=== PATIENT | male | born 2000 | race Caucasian/White ===

== ENCOUNTER 2022-07-31 14:45 | Outpatient (CLI) | payer OTHER, MEDICAID, SELFPAY ==
[2022-07-31 22:13] LABS: Sodium* 141 mmol/L (135-149)
[2022-07-31 22:15] LABS: Aspartate Amino Transferase* 57 U/L (12-35); Bilirubin Total* 0.4 mg/dL (0.1-1.5); Estimated Glomerular Filt Rate 109 ml/min
[2022-07-31 22:16] LABS: Alanine Aminotransferase* 84 U/L (4-50); Glucose* 82 mg/dL (60-115)
[2022-07-31 22:17] LABS: Potassium* 4.6 mmol/L (3.6-5.1)
[2022-07-31 22:49] LABS: Albumin* 4.7 g/dL (3.3-5.0)
[2022-07-31 22:50] LABS: Chloride* 107 mmol/L (96-114)
[2022-07-31 22:52] LABS: Alkaline Phosphatase* 81 U/L (40-150); Blood Urea Nitrogen* 15 mg/dL (5-24); Carbon Dioxide* 24 mmol/L (20-32); Cholesterol* 187 mg/dL (90-199); Total Protein* 7.2 g/dL (6.0-8.3)
[2022-07-31 22:53] LABS: HDL Cholesterol* 60 mg/dL (>=40); LDL Cholesterol Calculated 95 mg/dL (<100); Triglycerides* 162 mg/dL (40-149)
[2022-07-31 22:57] LABS: Hepatitis C Virus Antibody* Negative (Negative)
== END 2022-07-31 14:46 | disposition home or self-care (01) ==
PROVIDERS: PCP Pediatrics; Visit Provider Family Medicine
DX: Z00.00 Encounter for general adult medical examination without abnormal findings (principal); Z11.59 Encounter for screening for other viral diseases; Z13.6 Encounter for screening for cardiovascular disorders
CPT/HCPCS: 80053; 80061; 86803

== ENCOUNTER 2023-12-10 16:42 | Outpatient (CLI) | payer OTHER, MEDICAID, SELFPAY | END 2023-12-10 16:43 | disposition home or self-care (01) | PROVIDERS: PCP Family Medicine; Visit Provider Family Medicine | DX: I10 Essential (primary) hypertension (principal); Z13.220 Encounter for screening for lipoid disorders; Z13.1 Encounter for screening for diabetes mellitus; Z13.29 Encounter for screening for other suspected endocrine disorder | CPT/HCPCS: 80053; 80061; 82043; 82570; 84443 ==